=== PATIENT | female | born 1965 | race Caucasian/White ===

== ENCOUNTER → 2017-01-05 | Outpatient (CLI) | payer OTHER ==
[2017-01-05 15:28] VITALS: BP 129/76; PULSE 76; RESP 14; TEMP 98.3; BMI 45.5
--- NOTE | 2017-01-05 15:59 | P.HPBAR ---
Bariatric H&P - History & Physicial H&P Date: 01/05/17 History & Physicial: Visit/CC: band removal/sleeve consult Patient initial contact: Initial weight: 124.012 kg Initial weight in pounds: 273.40 Height: 5 ft 5 in Initial BMI: 45.5 Last weight: Current weight: 124.012 kg Current weight in pounds: 273.40 Current BMI: 45.5 [place] body weight (based on NIH guidelines): 56.699 kg Excess body weight loss: 0.0% The patient is a 51 year-old F who presents for Bariatric Assessment. Patient is requesting conversion to sleeve gastrectomy. She's had a lap band for several years. She's had problems with GERD and dysphagia. She is unable tolerate her band being filled any further due to constant reflux. Past Medical History Past Medical History: Hyperlipidemia, Hypertension, Rheumatoid Arthritis (RA) History of Any Multi-Drug Resistant Organisms: None Reported Past Surgical History: Bariatric Surgery, Tonsillectomy Additional Past Surgical History / Comment(s): lap band placed 2009, Past Anesthesia/Blood Transfusion Reactions: No Reported Reaction Additional Past Anesthesia/Blood Transfusion Reaction / Comm: NO blood transfusions to date Past Psychological History: No Psychological Hx Reported Smoking Status: Never smoker Past Alcohol Use History: Rare Past Drug Use History: None Reported - Past Family History Father Family Medical History: Coronary Artery Disease (CAD), Hypertension, Myocardial Infarction ([place]), Prostate Disorder Additional Family Medical History / Comment(s): at age 81 Mother Family Medical History: Cancer Additional Family Medical History / Comment(s): from cervical cancer dx at age 79 Surgical - Exam Vital Signs Temp Pulse Resp BP 98.3 F 76 14 129/76 01/05/17 15:06 01/05/17 15:06 01/05/17 15:06 01/05/17 15:06 - General well developed, no distress - Eyes PERRL - ENT normal pinna - Neck no masses - Respiratory normal expansion - Cardiovascular Rhythm: regular - Abdomen Abdomen: soft, non tender Bariatric Assessment & Plan Plan: Chronic GERD reflux. Patient LAP-BAND was empty. 6 mL remove her band. She will undergo workup for sleeve gastrectomy. The patient has been diagnosed with rheumatoid arthritis. She has trouble tolerating her pills due to dysphagia created by the LAP-BAND. Bariatric Checklist Checklist: Plan: Checklist: EGD: 1. Hiatal hernia: 2. H. Pylori: HgbA1c: Vitamin D: Smoking: Never smoker Primary care physician referral: link Psychiatry clearance: Cardiology clearance: Sleep study: Diet journal: VTE risk score: VTE risk level: Rehab needs at discharge:
== END | disposition home or self-care (01) ==
LOC: BARWHC3 14:18
PROVIDERS: ATTEND Surgery
DX: Z01.818 Encounter for other preprocedural examination (principal); K21.9 Gastro-esophageal reflux disease without esophagitis; R13.10 Dysphagia, unspecified; Z68.42 Body mass index [BMI] 45.0-49.9, adult; Z98.84 Bariatric surgery status; M06.9 Rheumatoid arthritis, unspecified; Z79.899 Other long term (current) drug therapy
CPT/HCPCS: 99202

== ENCOUNTER 2017-01-16 09:15 | Day surgery (SDC) | payer OTHER ==
[2017-01-13 11:14] VITALS: BMI 40.5
[~2017-01-16 09:15] MED LIST: DEXAMETHASONE SOD PHOSPHATE 10 MG/ML 1 ML VIAL IV ONE; HYDROmorphone 1 MG/ML 1 ML SYRINGE IVP PRN; MIDAZOLAM 2 MG/2 ML VIAL IV PRN; ONDANSETRON 4 MG/2 ML VIAL IVP ONE; SCOPOLAMINE 1.5MG/72HR PATCH TRANSDERM ONE
[2017-01-16 09:58] VITALS: TEMP 97.7
[2017-01-16] MEDS: LACTATED RINGERS 1,000 ML IV SCH ×2 (10:10→10:37)
[2017-01-16] MEDS ORDERED: LIDOCAINE 1% 20 ML VIAL (10MG/ML) FOR IV START INTRADERMA ONE (10:13)
[2017-01-16] MEDS ORDERED: LIDOCAINE 1% INJ 10MG/ML (20 ML MDV) ONE (10:38)
[2017-01-16] MEDS ORDERED: PROPOFOL 10 MG/ML 20 ML VIAL IV ONE (10:38)
--- NOTE | 2017-01-16 10:42 | P.GSHP ---
History of Present Illness H&P Date: 01/16/17 Chief Complaint: GERD Is a 51-year-old female who presents today for EGD. She's had history of GERD. Her LAP-BAND fluid was removed last week. She is undergoing workup for sleeve gastrectomy. - Constitutional Constitutional: Reports as per HPI Past Medical History Past Medical History: Hyperlipidemia, Hypertension, Rheumatoid Arthritis (RA) History of Any Multi-Drug Resistant Organisms: None Reported Past Surgical History: Bariatric Surgery, Tonsillectomy Additional Past Surgical History / Comment(s): lap band placed 2009, cerclage; Past Anesthesia/Blood Transfusion Reactions: No Reported Reaction Additional Past Anesthesia/Blood Transfusion Reaction / Comment(s): NO blood transfusions to date Past Psychological History: No Psychological Hx Reported Smoking Status: Never smoker Past Alcohol Use History: Rare Past Drug Use History: None Reported - Past Family History Father Family Medical History: Coronary Artery Disease (CAD), Hypertension, Myocardial Infarction ([place]), Prostate Disorder Additional Family Medical History / Comment(s): at age 81 Mother Family Medical History: Cancer Additional Family Medical History / Comment(s): from cervical cancer dx at age 79 Medications and Allergies Home Medications Medication Instructions Recorded Confirmed Type Adalimumab [Humira Crohn's] 40 mg SQ DIRECTED 01/05/17 01/16/17 History Atorvastatin [Lipitor] 40 mg PO HS 01/05/17 01/16/17 History Cetirizine HCl 10 mg PO DAILY 01/05/17 01/16/17 History Cholecalciferol [Vitamin D3] 5,000 unit PO DAILY 01/05/17 01/16/17 History Folic Acid 1 mg PO DAILY 01/05/17 01/16/17 History Lisinopril [Zestril] 5 mg PO DAILY 01/05/17 01/16/17 History Methotrexate Sodium [Methotrexate] 15 mg PO Q7D 01/05/17 01/16/17 History Triamcinolone Acetonide [Nasacort] 1 spray EA NOSTRIL DAILY 01/05/17 01/16/17 History Allergies Allergy/AdvReac Type Severity Reaction Status Date / Time No Known Allergies Allergy Verified 01/16/17 10:09 Surgical - Exam Vital Signs Temp Pulse Resp BP Pulse Ox 97.7 F 77 18 149/89 98 01/16/17 09:55 01/16/17 09:55 01/16/17 09:55 01/16/17 09:55 01/16/17 09:55 - General well developed - Eyes PERRL - ENT normal pinna - Neck no masses - Respiratory normal expansion - Cardiovascular Rhythm: regular - Abdomen Abdomen: soft, non tender Assessment and Plan Plan: GERD. We'll perform EGD.
--- NOTE | 2017-01-16 10:52 | P.OP ---
Date of Procedure: 01/16/17 Preoperative Diagnosis: GERD Postoperative Diagnosis: Antral gastritis LAP-BAND without evidence of erosion or inflammation Moderate esophagitis Procedure(s) Performed: EGD Anesthesia: MAC Surgeon: Melo Hale Pathology: other (Antrum, esophagus) Condition: stable Disposition: PACU Description of Procedure: The patient's placed on the endoscopy table in the lateral position. She received IV sedation. The gastroscope some placed oropharynx passed in the esophagus and into the stomach. Scope was then placed through the pylorus. First and second portion of the duodenum appeared normal. Scope was then brought back the antrum and this appeared mildly inflamed. A biopsies performed. The scope was then retroflexed and the remainder of the stomach appeared normal. . The LAP-BAND appeared to be without evidence of inflammation or erosion. The scope was then brought back to the level GE junction. The distal esophagus appeared to be moderately inflamed. A biopsies performed. The proximal esophagus Appeared Normal. Scope was withdrawn for patient.
[2017-01-16 10:58] VITALS: RESP 16
[2017-01-16 11:15] VITALS: BP 133/92; PULSE 64
== END 2017-01-16 11:30 | disposition home or self-care (01) ==
LOC: ORWHC2ENDO 09:15
PROVIDERS: ATTEND Surgery
DX: K20.9 Esophagitis, unspecified (principal); K29.50 Unspecified chronic gastritis without bleeding; E78.5 Hyperlipidemia, unspecified; I10 Essential (primary) hypertension; M06.9 Rheumatoid arthritis, unspecified; K50.90 Crohn's disease, unspecified, without complications; Z79.899 Other long term (current) drug therapy; Z98.84 Bariatric surgery status
CPT/HCPCS: 88305; 88312; 88342; 43239; J2001; J2704

== ENCOUNTER → 2017-01-19 | Outpatient (CLI) | payer OTHER ==
[2017-01-19 12:54] VITALS: BMI 42.5
[2017-01-19 16:18] VITALS: BP 132/75; PULSE 70; RESP 16; TEMP 97.6
--- NOTE | 2017-01-19 16:35 | P.HPBAR ---
Bariatric H&P - History & Physicial H&P Date: 01/19/17 History & Physicial: Visit/CC: Pre- Surg Patient initial contact: Initial weight: 124.012 kg Initial weight in pounds: 273.40 Height: 5 ft 5 in Initial BMI: 45.5 Last weight: Current weight: 115.802 kg Current weight in pounds: 255.30 Current BMI: 42.5 [place] body weight (based on NIH guidelines): 56.699 kg Excess body weight loss: 12.1% The patient is a 51 year-old F who presents for Bariatric Assessment. The patient has had long-standing problems reflux to her LAP-BAND. The patient wished to have her LAP-BAND removed and converted to sleeve gastrectomy. Past Medical History Past Medical History: Hyperlipidemia, Hypertension, Rheumatoid Arthritis (RA) History of Any Multi-Drug Resistant Organisms: None Reported Past Surgical History: Bariatric Surgery, Tonsillectomy Additional Past Surgical History / Comment(s): lap band placed 2009, cerclage; Past Anesthesia/Blood Transfusion Reactions: No Reported Reaction Additional Past Anesthesia/Blood Transfusion Reaction / Comm: NO blood transfusions to date Past Psychological History: No Psychological Hx Reported Smoking Status: Never smoker Past Alcohol Use History: Rare Past Drug Use History: None Reported - Past Family History Father Family Medical History: Coronary Artery Disease (CAD), Hypertension, Myocardial Infarction ([place]), Prostate Disorder Additional Family Medical History / Comment(s): at age 81 Mother Family Medical History: Cancer Additional Family Medical History / Comment(s): from cervical cancer dx at age 79 Surgical - Exam Vital Signs Temp Pulse Resp BP 97.6 F 70 16 132/75 01/19/17 16:16 01/19/17 16:16 01/19/17 16:16 01/19/17 16:16 - General well developed, no distress - Eyes PERRL - Neck no masses - Respiratory normal expansion - Cardiovascular Rhythm: regular - Abdomen Abdomen: soft, non tender Bariatric Assessment & Plan Plan: Morbid obesity with severe comorbidities. GERD. The patient has a good understanding of sleeve yesterday. I went over the risks and benefits of procedure including conversion to the open procedure and injury to the stomach liver spleen and issues the gastric staple line such as bleeding perforation or obstruction. The patient returned scheduled for surgery next month. Bariatric Checklist Checklist: Plan: Checklist: EGD: 1. Hiatal hernia: 2. H. Pylori: HgbA1c: Vitamin D: Smoking: Never smoker Primary care physician referral: link Psychiatry clearance: Cardiology clearance: Sleep study: Diet journal: VTE risk score: VTE risk level: Rehab needs at discharge:
== END | disposition home or self-care (01) ==
LOC: BARWHC3 08:50
PROVIDERS: ATTEND Surgery
DX: Z01.818 Encounter for other preprocedural examination (principal); Z71.3 Dietary counseling and surveillance; E66.01 Morbid (severe) obesity due to excess calories; Z68.41 Body mass index [BMI] 40.0-44.9, adult; K21.9 Gastro-esophageal reflux disease without esophagitis
CPT/HCPCS: 97804; 99211

== ENCOUNTER → 2018-04-12 | Outpatient (CLI) | payer OTHER ==
[2018-04-12 14:35] VITALS: BP 180/97; PULSE 73; TEMP 97.8; BMI 47.7
--- NOTE | 2018-04-12 14:58 | P.HPBAR ---
Bariatric H&P - History & Physicial H&P Date: 04/12/18 History & Physicial: Visit/CC: presurgical visit Patient initial contact: Initial weight: 124.012 kg Initial weight in pounds: 273.40 Height: 5 ft 5 in Initial BMI: 45.5 Last weight: Current weight: 130.226 kg Current weight in pounds: 287.10 Current BMI: 47.7 [place] body weight (based on NIH guidelines): 56.699 kg Excess body weight loss: The patient is a 53 year-old F who presents for Bariatric Assessment. Patient presents today for preoperative sleeve conversion consultation. She states she wishes to have her sleeve performed in June. She has almost completed all her preoperative sedation paperwork. Patient still morbidly obese with BMI 48. Past Medical History Past Medical History: Hyperlipidemia, Hypertension, Rheumatoid Arthritis (RA) History of Any Multi-Drug Resistant Organisms: None Reported Past Surgical History: Bariatric Surgery, Tonsillectomy Additional Past Surgical History / Comment(s): lap band placed 2009, cerclage; Past Anesthesia/Blood Transfusion Reactions: No Reported Reaction Additional Past Anesthesia/Blood Transfusion Reaction / Comm: NO blood transfusions to date Past Psychological History: No Psychological Hx Reported Smoking Status: Never smoker Past Alcohol Use History: Rare Past Drug Use History: None Reported - Past Family History Father Family Medical History: Coronary Artery Disease (CAD), Hypertension, Myocardial Infarction ([place]), Prostate Disorder Additional Family Medical History / Comment(s): at age 81 Mother Family Medical History: Cancer Additional Family Medical History / Comment(s): from cervical cancer dx at age 79 Surgical - Exam Vital Signs Temp Pulse BP 97.8 F 73 180/97 04/12/18 14:28 04/12/18 14:28 04/12/18 14:28 - General well developed, no distress - Abdomen Abdomen: non tender Bariatric Assessment & Plan Plan: Morbid obesity BMI 48. Patient will be scheduled for sleeve gastrectomy conversion and June 2018. Over the risk and benefits of procedure. We discussed the possible risk of gastric perforation. Patient seems to have a good understanding of sleeve gastrectomy. Bariatric Checklist Checklist: Plan: Checklist: EGD: 1. Hiatal hernia: 2. H. Pylori: HgbA1c: Vitamin D: Smoking: Never smoker Primary care physician referral: link Psychiatry clearance: Cardiology clearance: Sleep study: Diet journal: VTE risk score: VTE risk level: Rehab needs at discharge:
== END | disposition home or self-care (01) ==
LOC: BARWHC3 12:51
PROVIDERS: ATTEND Surgery
DX: E66.01 Morbid (severe) obesity due to excess calories (principal); E78.5 Hyperlipidemia, unspecified; I10 Essential (primary) hypertension; M06.9 Rheumatoid arthritis, unspecified; Z98.84 Bariatric surgery status; Z68.42 Body mass index [BMI] 45.0-49.9, adult; Z98.890 Other specified postprocedural states
CPT/HCPCS: 99211

== ENCOUNTER → 2018-05-17 | Outpatient (CLI) | payer OTHER ==
[2018-05-17 15:09] VITALS: BP 125/82; PULSE 75; TEMP 97.9; BMI 47.7
--- NOTE | 2018-05-17 15:37 | P.HPBAR ---
Bariatric H&P - History & Physicial H&P Date: 05/17/18 History & Physicial: Visit/CC: lapband fill Patient initial contact: Initial weight: 124.012 kg Initial weight in pounds: 273.40 Height: 5 ft 5 in Initial BMI: 45.5 Last weight: Current weight: 130.272 kg Current weight in pounds: 287.20 Current BMI: 47.7 [place] body weight (based on NIH guidelines): 56.699 kg Excess body weight loss: The patient is a 53 year-old F who presents for Bariatric Assessment. Patient is requesting a fill. She's not had a lap band adjustment in several months. Past Medical History Past Medical History: Hyperlipidemia, Hypertension, Rheumatoid Arthritis (RA) History of Any Multi-Drug Resistant Organisms: None Reported Past Surgical History: Bariatric Surgery, Tonsillectomy Additional Past Surgical History / Comment(s): lap band placed 2009, cerclage; Past Anesthesia/Blood Transfusion Reactions: No Reported Reaction Additional Past Anesthesia/Blood Transfusion Reaction / Comm: NO blood transfusions to date Smoking Status: Never smoker - Past Family History Father Family Medical History: Coronary Artery Disease (CAD), Hypertension, Myocardial Infarction ([place]), Prostate Disorder Additional Family Medical History / Comment(s): at age 81 Mother Family Medical History: Cancer Additional Family Medical History / Comment(s): from cervical cancer dx at age 79 Surgical - Exam Vital Signs Temp Pulse BP 97.9 F 75 125/82 05/17/18 15:02 05/17/18 15:02 05/17/18 15:02 - General well developed, no distress - Eyes PERRL - ENT normal pinna - Neck no masses - Respiratory normal expansion - Cardiovascular Rhythm: regular - Abdomen Abdomen: soft, non tender Bariatric Assessment & Plan Plan: Patient's lap band was adjusted. She had 3 mL added to her band. She'll follow -up in one month. Bariatric Checklist Checklist: Plan: Checklist: EGD: 1. Hiatal hernia: 2. H. Pylori: HgbA1c: Vitamin D: Smoking: Never smoker Primary care physician referral: riyaler Psychiatry clearance: Cardiology clearance: Sleep study: Diet journal: VTE risk score: VTE risk level: Rehab needs at discharge:
== END | disposition home or self-care (01) ==
LOC: BARWHC3 13:35
PROVIDERS: ATTEND Surgery
DX: Z48.815 Encounter for surgical aftercare following surgery on the digestive system (principal); Z98.84 Bariatric surgery status
CPT/HCPCS: 99212

== ENCOUNTER → 2018-06-14 | Outpatient (CLI) | payer OTHER ==
[2018-06-14 14:01] VITALS: BMI 46.0
[2018-06-14 14:32] VITALS: BP 130/92; PULSE 95; RESP 14; TEMP 97.5
--- NOTE | 2018-06-15 11:13 | P.HPBAR ---
Bariatric H&P - History & Physicial H&P Date: 06/14/18 History & Physicial: Visit/CC: lap band fill Patient initial contact: Initial weight: 124.012 kg Initial weight in pounds: 273.40 Height: 5 ft 5 in Initial BMI: 45.5 Last weight: Current weight: 125.418 kg Current weight in pounds: 276.50 Current BMI: 46.0 [place] body weight (based on NIH guidelines): 56.699 kg Excess body weight loss: The patient is a 53 year-old F who presents for Bariatric Assessment. Patient presents today for lab band follow up. She's lost 11 pounds since her last visit. She is requesting a fill. She currently feels hungry. Past Medical History Past Medical History: Hyperlipidemia, Hypertension, Rheumatoid Arthritis (RA) History of Any Multi-Drug Resistant Organisms: None Reported Past Surgical History: Bariatric Surgery, Tonsillectomy Additional Past Surgical History / Comment(s): lap band placed 2009, cerclage; Past Anesthesia/Blood Transfusion Reactions: No Reported Reaction Additional Past Anesthesia/Blood Transfusion Reaction / Comm: NO blood transfusions to date Past Psychological History: No Psychological Hx Reported Smoking Status: Never smoker Past Alcohol Use History: Rare Past Drug Use History: None Reported - Past Family History Father Family Medical History: Coronary Artery Disease (CAD), Hypertension, Myocardial Infarction ([place]), Prostate Disorder Additional Family Medical History / Comment(s): at age 81 Mother Family Medical History: Cancer Additional Family Medical History / Comment(s): from cervical cancer dx at age 79 Surgical - Exam Vital Signs Temp Pulse Resp BP 97.5 F L 95 14 130/92 06/14/18 13:12 06/14/18 13:12 06/14/18 13:12 06/14/18 13:12 - General well developed, no distress - Eyes PERRL - ENT normal pinna - Abdomen Abdomen: soft, non tender Bariatric Assessment & Plan Plan: Patient LAP-BAND was adjusted. She had 2 mL added to her band giving her total 5 mL. Patient was able drink water without difficulty. She'll follow-up in one month. Bariatric Checklist Checklist: Plan: Checklist: EGD: 1. Hiatal hernia: 2. H. Pylori: HgbA1c: Vitamin D: Smoking: Never smoker Primary care physician referral: link Psychiatry clearance: Cardiology clearance: Sleep study: Diet journal: VTE risk score: VTE risk level: Rehab needs at discharge:
== END | disposition home or self-care (01) ==
LOC: BARWHC3 13:02
PROVIDERS: ATTEND Surgery
DX: Z48.815 Encounter for surgical aftercare following surgery on the digestive system (principal); E66.01 Morbid (severe) obesity due to excess calories; Z68.42 Body mass index [BMI] 45.0-49.9, adult; Z98.84 Bariatric surgery status
CPT/HCPCS: 97803; 99212

== ENCOUNTER → 2018-10-08 | Outpatient (CLI) | payer OTHER ==
[2018-10-08 12:14] LABS: Appearance,Urine Cloudy (Clear); Bilirubin,Urine Negative (Negative); Blood,Urine Small (Negative); Color,Urine Yellow; Glucose,Urine (UA) Negative (Negative); HCT 46.7 % (34.0-46.0); HGB 15.2 gm/dL (11.4-16.0); Hyaline Casts,Urine 2 /lpf (0-2); Ketones,Urine Negative (Negative); Leukocyte Esterase,Urine Moderate (Negative); MCH 29.7 pg (25.0-35.0); MCHC 32.5 g/dL (31.0-37.0); MCV 91.3 fL (80.0-100.0); Mean Platelet Volume 7.2; Mucus,Urine Few /hpf; Nitrite,Urine Negative (Negative); PH, Urine 5.5 (5.0-8.0); Platelet Count 325 k/uL (150-450); Protein,Urine Trace (Negative); RBC 5.11 m/uL (3.80-5.40); RBC,Urine 5 /hpf (0-5); RDW 12.9 % (11.5-15.5); Specific Gravity,Urine 1.026 (1.001-1.035); Squamous Epithelial Cell,Urine 9 /hpf (0-4); Urobilinogen,Urine <2.0 mg/dL (<2.0); WBC 5.2 k/uL (3.8-10.6); WBC,Urine 7 /hpf (0-5)
[2018-10-08 12:15] LABS: INR 1.1 (<1.2); Prothrombin Time 11.1 sec (9.0-12.0)
[2018-10-08 12:36] LABS: Potassium 4.6 mmol/L (3.5-5.1)
== END ==
LOC: LABPAT 11:14
PROVIDERS: ATTEND Orthopaedic Surgery
DX: Z01.818 Encounter for other preprocedural examination (principal); Z01.812 Encounter for preprocedural laboratory examination
CPT/HCPCS: 80051; 81001; 82565; 84520; 85027; 85610; 85730; 87070; 93005

== ENCOUNTER 2018-11-02 08:37 | Inpatient (IN) | payer OTHER ==
[2018-10-27 15:00] VITALS: BMI 44.6
[~2018-11-02 08:37] MED LIST changes: -DEXAMETHASONE SOD PHOSPHATE 10 MG/ML 1 ML VIAL IV ONE; -HYDROmorphone 1 MG/ML 1 ML SYRINGE IVP PRN; +LIDOCAINE 1% 20 ML VIAL (10MG/ML) FOR IV START INTRADERMA PRN; +MIDAZOLAM (PF) 2 MG/2 ML VIAL IV PRN; -MIDAZOLAM 2 MG/2 ML VIAL IV PRN; -ONDANSETRON 4 MG/2 ML VIAL IVP ONE; +ROPIVACAINE 246.25 MG, EPINEPHrine 0.5 MG, KETOROLAC 30 MG, cloNIDine HCL/PF 80 MCG, WA... MISCELLANE ONE; -SCOPOLAMINE 1.5MG/72HR PATCH TRANSDERM ONE; +TRANEXAMIC ACID 1,000 MG in SODIUM CHLORIDE 0.9% 50 ML IVPB ONE; +fentaNYL (PF) 50 MCG/ML 2 ML AMP IV PRN
[2018-11-02] MEDS: LACTATED RINGERS 1,000 ML IV SCH (09:10)
[2018-11-02 09:25] LABS: Glucose,Whole Blood 85 mg/dL (75-99)
[2018-11-02] MEDS ORDERED: MIDAZOLAM 2 MG/2 ML VIAL IVP ONE (09:45)
[2018-11-02] MEDS ORDERED: fentaNYL (PF) 50 MCG/ML 2 ML AMP IVP ONE (09:45)
[2018-11-02] MEDS: DEXAMETHASONE SOD PHOSPHATE 10 MG/ML 1 ML VIAL IV ONE ×2 (10:21→17:19)
[2018-11-02] MEDS: ACETAMINOPHEN TAB 500 MG TAB PO ONE ×2 (10:21→17:20)
[2018-11-02] MEDS: ONDANSETRON 4 MG/2 ML VIAL IVP ONE ×2 (10:22→17:19)
[2018-11-02] MEDS: MELOXICAM 7.5 MG TAB PO ONE ×2 (10:22→17:20)
[2018-11-02] MEDS ORDERED: ROPIVACAINE 1,100 MG, SODIUM CHLORIDE 0.9% 500 ML 330 ML MISCELLANE PRN ×2 (10:34)
--- NOTE | 2018-11-02 10:34 | P.ONQ ---
Anesthesiology Proc Note - PNB - Peripheral Nerve Block Performed Left Adductor Canal Infusion Time Out Performed: Yes Procedure Start Time: 09:48 Procedure Stop Time: 10:05 Indication: Requested by physician Specifically requested for management of pain by : Tuan Enciso Sedation Type: Sedate with meaningful contact maintained Preparation: Sterile Dressing Position: Supine Catheter: Indwelling Needle Types: Other (see comment) (pujunk) Needle Size: 100mm (4") Needle Gauge: 20 Technique: Ultrasound Injectate: 0.5% Ropivacaine (see comment for volume) (20 ml) Blood Aspirated: No Pain Paresthesia on Injection Noted: No Resistance on Injection: Normal Events: Uneventful and Well Tolerated
[2018-11-02] MEDS ORDERED: NALOXONE 0.4 MG/ML 1 ML VIAL IV PRN (11:15)
[2018-11-02] MEDS ORDERED: MAGNESIUM HYDROXIDE 2,400 MG/10 ML CUP PO PRN (11:15)
[2018-11-02] MEDS ORDERED: NA PHOS,M-B/NA PHOS,DI-BA 133 ML ENEMA RECTAL PRN (11:15)
[2018-11-02] MEDS ORDERED: ONDANSETRON 4 MG/2 ML VIAL IVP PRN (11:15)
[2018-11-02] MEDS ORDERED: HYDROmorphone 0.5 MG/0.5 ML SYRINGE IVP PRN (11:15)
[2018-11-02] MEDS ORDERED: DIAZEPAM 5 MG TAB PO PRN (11:15)
[2018-11-02] MEDS ORDERED: HYDROcodone/APAP 5-325MG 1 EACH TAB PO PRN (11:15)
[2018-11-02] MEDS ORDERED: HYDROmorphone 1 MG/ML 1 ML SYRINGE IVP PRN ×3 (11:15→11:35)
[2018-11-02] MEDS ORDERED: BISACODYL 10 MG SUPP RECTAL PRN (11:15)
[2018-11-02] MEDS ORDERED: TRANEXAMIC ACID 1,000 MG/10 ML VIAL ONE (11:34)
[2018-11-02] MEDS ORDERED: SODIUM CHLORIDE 0.9% 100 ML BAG ONE (11:34)
[2018-11-02] MEDS ORDERED: fentaNYL (PF) 50 MCG/ML 2 ML AMP ONE (11:34)
[2018-11-02] MEDS ORDERED: MIDAZOLAM 2 MG/2 ML VIAL ONE (11:34)
[2018-11-02] MEDS ORDERED: PROPOFOL 10 MG/ML 20 ML VIAL IV ONE (11:34)
[2018-11-02] MEDS ORDERED: ceFAZolin 3,000 MG in SODIUM CHLORIDE 0.9% IRRIGATIO 3,000 ML IRRIGATION ONE (12:09)
--- NOTE | 2018-11-02 13:12 | P.OP ---
Date of Procedure: 11/02/18 Preoperative Diagnosis: Severe osteoarthritis left knee Postoperative Diagnosis: Severe osteoarthritis left knee Procedure(s) Performed: Left total knee arthroplasty Implants: [employer] Journey II CR Oxinium cruciate retaining femoral component size 6, left [employer] Journey left nonporous tibial baseplate size 4 [employer] Journey II, XLPE CR articular insert, size 9 mm, Size 3-4 left [employer] BCS resurfacing oval patellar component, 29 mm All components were cemented using [place] R bone cement.. The articulation is Oxinium on polyethylene. Anesthesia: spinal Surgeon: Tuan Enciso Propagation Manager #1: Amanda Dewitt Estimated Blood Loss (ml): 25 Pathology: other (Bone and cartilage) Condition: stable Disposition: PACU Indications for Procedure: After failure of conservative treatment we discussed the surgical and nonsurgical treatment options at length. Patient wishes to proceed with a total knee arthroplasty. Complications specific to this procedure were discussed at length, including but not limited to infection, bleeding, stiffness , and nerve injury. Patient is aware of all these complications and informed consent was obtained Operative Findings: The operative findings are consistent with severe osteoarthritis of the left knee Description of Procedure: Patient was seen in the preoperative area consent was reviewed and operative site was marked with a skin marker. An adductor canal pain catheter was placed by anesthesia in the preoperative area. Patient was then brought to the operating room and given preoperative antibiotics intravenously. A spinal anesthetic was administered by the anesthesia department. A tourniquet was placed on the upper thigh and the lower extremity was prepped and draped in usual sterile fashion. A gram of transexamic acid was given. A universal timeout was then performed which confirmed the patient's name, surgical site, ALLERGIES, and consent. The lower extremity was then exsanguinated and tourniquet was inflated to 250 mmHg. A standard and anterior midline approach to the knee was performed. The skin and subcutaneous tissue was dissected down to the patellar tendon. A medial parapatellar arthrotomy was then performed. The knee was then extended, the patellar was everted, and the knee was again flexed. Anterior horns of both menisci were excised, and a release was performed to the posterior medial aspect of the knee. On gross visual inspection, there was complete loss of articular cartilage in the medial and patellofemoral joint spaces. There was also significant cartilage damage in the lateral compartment. There were multiple periarticular osteophytes which were then removed with a Ronguer. The femoral canal was then opened with the appropriate drill, and the intramedullary femoral cutting guide was then placed and set for 5 of valgus. The distal femoral cutting block was then pinned in place, and the distal femur was then cut. The cutting block was then removed and the cut was checked for flatness. Next, the sizing guide was then placed and set for 3 external rotation based off of the epicondylar axis and [place] line. After the femur was sized, the appropriate 4-in-1 cutting block was then pinned in place. The anterior condyles were cut without notching. The posterior and chamfer cuts were performed while protecting the collateral ligaments. The cutting block was then removed, and the femoral canal was plugged with autologous bone. Attention was then directed to the tibia. The remaining ACL was removed with a Ronguer, and the tibia was then gently subluxed forward with a large bent knee retractor. Any remaining menisci was excised. The posterior lateral corner was cauterized in order to cauterize the lateral geniculate artery. The extra medullary tibial cutting guide was then placed, set for the appropriate rotation , slope, and depth of resection. The proximal tibia cutting guide was then pinned in place. Proximal tibia was then cut and sized. Next trials were then placed with the appropriate-sized insert. The knee was able to fully extend and flex to 130 and was stable throughout all range of motion. The knee was then extended, patella everted. Patella was then measured, and then using an osteotomy guide, the patella was cut at the appropriate level. The patella was then measured and drilled and the patella trial was then placed. The knee was then taken through range of motion with the patella trial and the patella tracked normally. The knee was then extended patella trial was then removed and the patella was everted. Knee was then flexed and lug holes were drilled through the femoral trial and the femoral trial was then removed. The tibial was then exposed, and the tibial broach guide was then pinned in place after it was set for the appropriate rotation to allow for the most coverage without overhang. The tibia was then reamed and broached. The cut surfaces of bone were then irrigated with pulsatile lavage. The posterior structures were injected with the ropivacaine solution. The knee was also irrigated with Irrisept solution. The components were then opened, the cement was mixed, and the components were then cemented in place. The cement was allowed to harden with the knee in full extension. While the cement was hardening, the remaining soft tissues were then injected with a ropivacaine solution, which consisted of 246.25 mg of ropivacaine, 0.5 mg of epinephrine, 30 mg of Toradol, 80 g of clonidine, and 48.45 mL of sterile water, for a total of 100 mL of fluid injected. After the cemented hardened. The tourniquet was released, and hemostasis was obtained. A second gram of transexamic acid was given. The knee was again irrigated. The knee was again taken through range of motion and found to be stable throughout all range of motion of 0-130 , and the patella tracked normally. The fascia was then closed with #2 strata fix suture. The subcutaneous tissue was closed with 3-0 Vicryl and 3-0 strata fix. Dermabond glue was used for the skin and placed with the knee in flexion. The patient was placed in a sterile silver dressing. Patient was then transferred to recovery room in stable condition. The assistant paralegal KRYSTIAN Yarbrough was required due the complexity surgery and the need for a skilled hospital nursing assistant. She assisted in positioning, draping, retraction, and closure of the wound.
[2018-11-02] MEDS ORDERED: MEPERIDINE 50 MG/ML SYRINGE IVP ONE (13:49)
--- NOTE | 2018-11-02 14:09 | XR ---
Limited left knee HISTORY: Status post left knee arthroplasty 2 views the left knee Patient is status post left knee arthroplasty. There is anatomic alignment. Lucency in the soft tissu es compatible with postop state. IMPRESSION: Orthopedic follow-up.
[2018-11-02] MEDS: SODIUM CHLORIDE 0.9% 1,000 ML IV SCH (17:18)
[2018-11-02] MEDS: HYDROcodone/APAP 5-325MG 1 EACH TAB PO PRN ×2 (17:50→23:42)
[2018-11-02] MEDS: ASPIRIN 325 MG TAB PO SCH (20:24)
[2018-11-02] MEDS: SENNOSIDES-DOCUSATE SODIUM 1 EACH TAB PO SCH (20:24)
[2018-11-02] MEDS ORDERED: hydrOXYzine HCL 25 MG TAB PO PRN (20:24)
--- NOTE | 2018-11-02 23:25 | CONS ---
CONSULTATION REASON FOR CONSULTATION: Advice regarding hypertension and multiple medical issues requested by Dr. Enciso. HISTORY OF PRESENT ILLNESS: This 52-year-old woman with a past medical history of GERD, hypertension, hyperlipidemia, rheumatoid arthritis, history of lap band, being followed by Dr. Echevarria in the outpatient setting underwent total left knee arthroplasty for severe DJD by Dr. Enciso. The patient tolerated the procedure well. There is no history of fever, rigors. No history of headache, loss of consciousness, seizures at this time. The patient is being closely monitored at this time. PAST MEDICAL HISTORY: Hypertension, hyperlipidemia, GERD, rheumatoid arthritis, history of DJD. MEDICATIONS ARE: 1. Atarax 50 mg t.i.d. p.r.n. 2. Nasacort 1 spray b.i.d. daily. 3. Prilosec 20 mg. 4. Methotrexate 2.5 mg q 14 days. 5. Zestril 5 mg p.o. daily. 6. Motrin 800 mg q.8h p.r.n. 7. Folic acid 1 mg p.o. daily. 8. Vitamin D3 5000 daily. 9. Cetirizine 10 mg daily. 10.Lipitor 40 mg daily. 11.Humira 40 mg subcu q14 days. 12.Tylenol Extra strength 500-1000 mg q.6h p.r.n. ALLERGIES: None. FAMILY HISTORY: History of CAD, hypertension, microinfarction, prostate disorder. SOCIAL HISTORY: No history of smoking. Occasional alcohol intake. REVIEW OF SYSTEMS: ENT: No diminished hearing. No diminished vision. CARDIOVASCULAR: No angina or palpitations. Respiration: No cough or hemoptysis. GI no nausea or vomiting. no dysuria. Nervous System: No numbness or weakness. ALLERGY/IMMUNOLOGY: No asthma or hayfever. MUSCULOSKELETAL: As mentioned earlier. HEMATOLOGY/ONCOLOGY: No history of anemia. ENDOCRINE: As mentioned earlier. CONSTITUTIONAL: As mentioned earlier. Dermatology: Negative. Rheumatology: Negative. Psychiatry: As mentioned earlier. PHYSICAL EXAMINATION: Alert and oriented x3. The pulse is 68, blood pressure 130/70, respiration 14, temperature 97.7, pulse ox 98% on 2 L. HEENT: Conjunctivae normal. Oral mucosa moist. Neck is no JVD. CARDIOVASCULAR: S1, S2. Respiration: Breath sounds diminished in the bases. No rhonchi. No crackles. ABDOMEN: Soft, nontender. No mass palpable. Legs status post left total knee arthroplasty. NERVOUS SYSTEM: Higher functions as mentioned earlier. Moves all 4 limbs. No focal motor deficits. SKIN: No ulcer, rash or bleeding. LABORATORY DATA: Labs are glucose is 85. Otherwise, the most recent labs are CBC within normal limits and chemistry is normal. UA shows noted. ASSESSMENT: 1. Status post left total knee arthroplasty. 2. Hypertension. 3. Hyperlipidemia. 4. History of gastroesophageal reflux disease. 5. Rheumatoid arthritis. 6. History of lap band. 7. History of adenoidectomy. RECOMMENDATIONS AND DISCUSSION: In this 53-year-old woman who presented after surgery, at this time, I recommend to continue current medications, symptomatic treatment. Resume the home medications. DVT prophylaxis. Incentive spirometry. I would also recommend repeat UA. We will follow the patient closely. The patient will be asked to follow up with Dr. Echevarria after discharge. Thank you Dr. Enciso, for letting us participate in the care of this patient. MMODL / GLENNAN: [id number] /
[2018-11-03 00:19] LABS: Appearance,Urine Clear (Clear); Bacteria,Urine Rare /hpf; Bilirubin,Urine Negative (Negative); Blood,Urine Negative (Negative); Color,Urine Yellow; Glucose,Urine (UA) Negative (Negative); Hyaline Casts,Urine 4 /lpf (0-2); Ketones,Urine Trace (Negative); Leukocyte Esterase,Urine Moderate (Negative); Mucus,Urine Occasional /hpf; Nitrite,Urine Negative (Negative); Protein,Urine 1+ (Negative); RBC,Urine 1 /hpf (0-5); Specific Gravity,Urine 1.039 (1.001-1.035); Squamous Epithelial Cell,Urine 7 /hpf (0-4); WBC,Urine 13 /hpf (0-5)
[2018-11-03] MEDS: SODIUM CHLORIDE 0.9% 1,000 ML IV SCH (02:41)
[2018-11-03] MEDS: HYDROcodone/APAP 5-325MG 1 EACH TAB PO PRN ×4 (05:32→23:04)
[2018-11-03] MEDS: LACTATED RINGERS 1,000 ML IV SCH (05:40)
--- NOTE | 2018-11-03 07:42 | P.PN ---
Progress Note - Text Progress Note Date: 11/03/18 Postoperative day # 1 status post left total knee arthroplasty, under spinal anesthesia, and adductor canal catheter placed for postoperative analgesia, currently at ropivacaine 0.2% 8 mL per hour and continuous infusion, visual analogue scale is 2/10, patient using oral pain medication for breakthrough pain. Assessment and plan= Acute postoperative pain, adductor canal catheter for pain control, pain is well controlled we'll continue the same management.
--- NOTE | 2018-11-03 08:53 | P.DS ---
Providers Date of admission: 11/02/18 08:37 Expected date of discharge: 11/03/18 Attending physician: Tuan Enciso Consults: 11/02/18 11:15 Consult Physician Routine Consulting Provider: Franco Echevarria Consult Reason/Comments: medical management Do you want consulting provider notified?: Yes 11/02/18 16:12 Consult Physician Routine Consulting Provider: Ricki Veliz Consult Reason/Comments: medical management Do you want consulting provider notified?: Yes Primary care physician: Franco Echevarria - Discharge Diagnosis(es) (1) Primary osteoarthritis of left knee Current Visit: Yes Status: Acute (2) Status post total left knee replacement Current Visit: Yes Status: Acute Hospital Course: This is a 53-year-old female with known history of degenerative arthritis of the left knee. The patient presents for evaluation. After discussion and consideration patient elects to proceed with total knee arthroplasty. The patient is seen preoperatively by Dr. Enciso and medically cleared for surgery by their primary care physician. Patient is admitted to [facility] on 11/02/2018 for total knee arthroplasty. The procedures performed without complication or sequelae. The patient is doing well postoperatively. Labs and vital signs are stable on day of discharge. On day of discharge patient's knee incision is healing well. There is minimal erythema. There is no drainage noted at this time. There is minimal soft tissue swelling to the knee. Patient has full foot and ankle motion without difficulty or pain. Neurovascular status to the left lower extremity is intact. Patient is discharged home in good condition. Please see med rec for accurate list of home medications. Plan - Discharge Summary Discharge Rx Participant: Yes New Discharge Prescriptions: New Aspirin 325 mg PO BID #60 tab HYDROcodone/APAP 5-325MG [[place] 5-325] 1 - 2 tab PO Q4-6H PRN #84 tab PRN Reason: Pain Sennosides [Senokot] 1 tab PO BID #60 tablet No Action Cholecalciferol [Vitamin D3] 5,000 unit PO DAILY Atorvastatin [Lipitor] 40 mg PO DAILY Adalimumab [Humira Crohn's] 40 mg SQ Q14D Triamcinolone Acetonide [Nasacort] 1 spray EA NOSTRIL DAILY Lisinopril [Zestril] 5 mg PO DAILY Cetirizine HCl 10 mg PO DAILY Folic Acid 1 mg PO DAILY Ibuprofen [Motrin] 800 mg PO Q8H PRN PRN Reason: Pain hydrOXYzine HCL [Atarax] 50 mg PO TID PRN PRN Reason: HIVES Methotrexate [Xatmep Oral Soln] 2.5 mg PO Q14D Acetaminophen [Tylenol Extra Strength] 500 - 1,000 mg PO Q6H PRN PRN Reason: Pain Omeprazole [PriLOSEC] 20 mg PO AC-BRKFST Discharge Medication List Adalimumab [Humira Crohn's] 40 mg SQ Q14D 01/05/17 [History] Atorvastatin [Lipitor] 40 mg PO DAILY 01/05/17 [History] Cetirizine HCl 10 mg PO DAILY 01/05/17 [History] Cholecalciferol [Vitamin D3] 5,000 unit PO DAILY 01/05/17 [History] Folic Acid 1 mg PO DAILY 01/05/17 [History] Lisinopril [Zestril] 5 mg PO DAILY 01/05/17 [History] Triamcinolone Acetonide [Nasacort] 1 spray EA NOSTRIL DAILY 01/05/17 [History] Ibuprofen [Motrin] 800 mg PO Q8H PRN 06/14/18 [History] Acetaminophen [Tylenol Extra Strength] 500 - 1,000 mg PO Q6H PRN 10/27/18 [ History] Methotrexate [Xatmep Oral Soln] 2.5 mg PO Q14D 10/27/18 [History] Omeprazole [PriLOSEC] 20 mg PO AC-BRKFST 10/27/18 [History] hydrOXYzine HCL [Atarax] 50 mg PO TID PRN 10/27/18 [History] Aspirin 325 mg PO BID #60 tab 11/03/18 [Rx] HYDROcodone/APAP 5-325MG [[place] 5-325] 1 - 2 tab PO Q4-6H PRN #84 tab 11/03/18 [ Rx] Sennosides [Senokot] 1 tab PO BID #60 tablet 11/03/18 [Rx] Follow up Appointment(s)/Referral(s): Tuan Enciso DO [Doctor of Osteopathic Medicine] - 2 Weeks Ambulatory/Diagnostic Orders: Continuous Passive Motion (CPM) Machine [DME.AMB1] Time Frame: 3 Weeks, Location : None Selected Activity/Diet/Wound Care/Special Instructions: Weightbearing as tolerated with a walker. CPM 5-6h daily. Leave dressing intact. May be removed by home care nurse in 10 days. May shower with dressing on. Please follow up with [facility] and call with any questions or concerns, . Discharge Disposition: HOME WITH HOME HEALTH SERVICES
[2018-11-03] MEDS: LORATADINE 10 MG TAB PO SCH (09:35)
[2018-11-03] MEDS: PANTOPRAZOLE 40 MG TABLET PO SCH (09:35)
[2018-11-03] MEDS: CHOLECALCIFEROL 1,000 UNIT TAB PO SCH (09:35)
[2018-11-03] MEDS: ATORVASTATIN 40 MG TAB PO SCH (09:36)
[2018-11-03] MEDS: ASPIRIN 325 MG TAB PO SCH ×2 (09:36→22:08)
[2018-11-03] MEDS: hydrOXYzine PAMOATE 25 MG CAP PO PRN (09:36)
[2018-11-03] MEDS: MELOXICAM 7.5 MG TAB PO SCH (09:38)
[2018-11-03] MEDS: FLUTICASONE 50MCG/SPRAY NASAL 16GM EA NOSTRIL SCH (09:40)
[2018-11-03] MEDS: LISINOPRIL 5 MG TAB PO SCH (09:40)
[2018-11-03 11:03] LABS: Basophils % (A) 0 %; Eosinophils # (A) 0.1 k/uL (0-0.7); Eosinophils % (A) 1 %; HCT 37.9 % (34.0-46.0); Lymphocytes # (A) 1.8 k/uL (1.0-4.8); Lymphocytes % (A) 19 %; MCH 29.4 pg (25.0-35.0); MCHC 32.2 g/dL (31.0-37.0); MCV 91.3 fL (80.0-100.0); Mean Platelet Volume 7.3; Monocytes # (A) 0.6 k/uL (0-1.0); Monocytes % (A) 7 %; Neutrophils # (A) 6.8 k/uL (1.3-7.7); Neutrophils % (A) 72 %; Platelet Count 297 k/uL (150-450); RBC 4.16 m/uL (3.80-5.40); RDW 13.4 % (11.5-15.5); WBC 9.4 k/uL (3.8-10.6)
[2018-11-03 11:05] LABS: HGB 12.2 gm/dL (11.4-16.0)
[2018-11-03] MEDS: FOLIC ACID 1 MG TAB PO SCH (12:31)
--- NOTE | 2018-11-03 14:02 | PN ---
PROGRESS NOTE DATE OF SERVICE: 11/03/2018 This 53-year-old woman who was admitted after left total knee arthroplasty improved significantly. No chest pain or palpitation. No fever. PHYSICAL EXAMINATION: On alert and oriented x3. Pulse is 52, blood pressure 119/81, respiration 16, temperature 97.4, pulse ox 94% on room air. HEENT: Conjunctivae normal. NECK: No jugular venous distention. CARDIOVASCULAR: S1 and S2 muffled. RESPIRATORY: Breath sounds diminished at the bases. No rhonchi. No crackles. Abdomen is soft, nontender. LEGS: Status post surgery. NERVOUS SYSTEM: No focal deficits. LABS: CBC noted, otherwise UA shows possible UTI. ASSESSMENT: 1. Status post left total knee arthroplasty. 2. Hypertension. 3. Urinary tract infection, present on admission. 4. Hyperlipidemia. 5. History of gastroesophageal reflux disease. 6. History of rheumatoid arthritis. 7. History of lap band. 8. History of adenoidectomy. RECOMMENDATIONS AND DISCUSSION: Recommend to continue current medications, continue with monitoring and symptomatic treatment. Otherwise at this time, a short course of antibiotics. Continue the rest of the medications. Follow closely with Dr. Echevarria in the outpatient setting. The rest of the recommendations per Orthopedic Surgery. Further recommendations to follow. MMODL / IJN: [id number] /
[2018-11-03] MEDS: ONDANSETRON ODT 4 MG TAB PO PRN (17:12)
[2018-11-03] MEDS: SENNOSIDES-DOCUSATE SODIUM 1 EACH TAB PO SCH (22:08)
[2018-11-04] MEDS: HYDROcodone/APAP 5-325MG 1 EACH TAB PO PRN ×3 (04:58→16:21)
[2018-11-04] MEDS: ONDANSETRON ODT 4 MG TAB PO PRN ×2 (04:58→10:58)
[2018-11-04] MEDS: ATORVASTATIN 40 MG TAB PO SCH (07:49)
[2018-11-04] MEDS: PANTOPRAZOLE 40 MG TABLET PO SCH (07:49)
[2018-11-04] MEDS: ASPIRIN 325 MG TAB PO SCH (07:49)
[2018-11-04] MEDS: FLUTICASONE 50MCG/SPRAY NASAL 16GM EA NOSTRIL SCH (07:50)
[2018-11-04] MEDS: LISINOPRIL 5 MG TAB PO SCH (07:50)
[2018-11-04] MEDS: CHOLECALCIFEROL 1,000 UNIT TAB PO SCH (07:50)
[2018-11-04] MEDS: LORATADINE 10 MG TAB PO SCH (07:51)
[2018-11-04] MEDS: MELOXICAM 7.5 MG TAB PO SCH (07:51)
[2018-11-04] MEDS: hydrOXYzine PAMOATE 25 MG CAP PO PRN ×2 (10:58→16:22)
[2018-11-04] MEDS: FOLIC ACID 1 MG TAB PO SCH (11:30)
[2018-11-04 15:24] VITALS: BP 94/54; PULSE 86; RESP 16; TEMP 98.9
--- NOTE | 2018-11-06 00:28 | PN ---
PROGRESS NOTE DATE OF SERVICE: 11/04/2018 PRESENTING COMPLAINT: Left knee surgery. INTERVAL HISTORY: The patient seen by me yesterday on November 04, 2018. Could not dictate because the computers were down. Patient's pain is better controlled. Did tolerate a diet. Did work with therapy. No new issues. No chest pain or short of breath. REVIEW OF SYSTEMS: Done for constitutional, cardiovascular, GI, pulmonary and relevant findings as above. MEDICATIONS: Current medications reviewed. PHYSICAL EXAMINATION: VITAL SIGNS: Temperature 98.9, pulse 86, respirations 16, blood pressure 94/54. Pulse ox 97% on room air. GENERAL APPEARANCE: Sitting up. Comfortable. EYES: Pupils equal. Conjunctivae normal. NECK: JVD not raised. Mass not palpable. RESPIRATORY: Effort normal. LUNGS: Fair entry. CARDIOVASCULAR: 1st and 2nd sounds normal. No edema. ABDOMEN: Soft, nontender. Liver and spleen not palpable. PSYCHIATRY: Alert and oriented times three. Mood and affect normal. INVESTIGATIONS: White count 9.5, hemoglobin 12.2. ASSESSMENT: 1. Left total knee arthroplasty. 2. Morbid obesity BMI 44.6. 3. Gastroesophageal reflux disease. 4. Hyperlipidemia. 5. Essential hypertension. 6. History of lap band. 7. Primary osteoarthritis. PLAN: Continue current medication and treatment plan. For DVT prophylaxis, patient is on aspirin 325 p.o. b.i.d. per the orthopedic team. Other home medications to continue. The patient to follow up with Dr. Echevarria upon discharge. Care was discussed with the patient. Thank you, Dr. Enciso. MMBRIDGETTL / GLENNAN: [id number] /
== END 2018-11-04 16:35 | disposition home health service (06) | DRG 470 ==
LOC: 2ORMAIN 08:37 → 4SSUR 16:00
PROVIDERS: ADMIT Orthopaedic Surgery; ATTEND Orthopaedic Surgery
PROC: 0SRD069 Replacement of Left Knee Joint with Oxidized Zirconium on Polyethylene Synthetic Substitute, Cemented, Open Approach (ICD-10-PCS; principal; 2018-11-02 11:45)
DX: M17.12 Unilateral primary osteoarthritis, left knee (principal); N39.0 Urinary tract infection, site not specified; Z68.41 Body mass index [BMI] 40.0-44.9, adult; I10 Essential (primary) hypertension; E78.5 Hyperlipidemia, unspecified; M06.9 Rheumatoid arthritis, unspecified; M25.762 Osteophyte, left knee; K21.9 Gastro-esophageal reflux disease without esophagitis; E66.01 Morbid (severe) obesity due to excess calories; Z98.84 Bariatric surgery status; Z79.899 Other long term (current) drug therapy; Z82.49 Family history of ischemic heart disease and other diseases of the circulatory system
CPT/HCPCS: 81001; 85025; 88300

== ENCOUNTER → 2019-01-13 | Outpatient (CLI) | payer OTHER ==
[2019-01-13 17:16] LABS: Appearance,Urine Clear (Clear); Bilirubin,Urine Negative (Negative); Blood,Urine Trace (Negative); Color,Urine Light Yellow; Glucose,Urine (UA) Negative (Negative); HCT 44.4 % (34.0-46.0); HGB 13.9 gm/dL (11.4-16.0); Hyaline Casts,Urine 1 /lpf (0-2); Ketones,Urine Negative (Negative); Leukocyte Esterase,Urine Small (Negative); MCH 28.7 pg (25.0-35.0); MCHC 31.3 g/dL (31.0-37.0); MCV 91.7 fL (80.0-100.0); Mean Platelet Volume 6.8; Mucus,Urine Rare /hpf; Nitrite,Urine Negative (Negative); PH, Urine 5.5 (5.0-8.0); Platelet Count 300 k/uL (150-450); Protein,Urine Negative (Negative); RBC 4.84 m/uL (3.80-5.40); RBC,Urine <1 /hpf (0-5); RDW 13.7 % (11.5-15.5); Specific Gravity,Urine 1.014 (1.001-1.035); Squamous Epithelial Cell,Urine 1 /hpf (0-4); Urobilinogen,Urine <2.0 mg/dL (<2.0); WBC 5.7 k/uL (3.8-10.6); WBC,Urine 3 /hpf (0-5)
[2019-01-13 17:25] LABS: Partial Thromboplastin Time 23.5 sec (22.0-30.0); Prothrombin Time 10.7 sec (9.0-12.0)
[2019-01-13 17:36] LABS: Albumin 4.1 g/dL (3.5-5.0); Calcium 9.2 mg/dL (8.4-10.2); Potassium 4.1 mmol/L (3.5-5.1); Total Bilirubin 0.3 mg/dL (0.2-1.3); Total Protein 7.1 g/dL (6.3-8.2)
== END | disposition home or self-care (01) ==
LOC: LABPAT 16:19
PROVIDERS: ATTEND Orthopaedic Surgery
DX: Z01.812 Encounter for preprocedural laboratory examination (principal); M17.11 Unilateral primary osteoarthritis, right knee
CPT/HCPCS: 80053; 81001; 85027; 85610; 85730; 87070

== ENCOUNTER 2019-02-01 11:58 | Inpatient (IN) | payer OTHER ==
[2019-01-20 15:26] VITALS: BMI 43.2
[~2019-02-01 11:58] MED LIST changes: +ACETAMINOPHEN TAB 500 MG TAB PO ONE; -LIDOCAINE 1% 20 ML VIAL (10MG/ML) FOR IV START INTRADERMA PRN; +MELOXICAM 7.5 MG TAB PO ONE; -MIDAZOLAM (PF) 2 MG/2 ML VIAL IV PRN; +TRANEXAMIC ACID 1,000 MG in SODIUM CHLORIDE 0.9% 100 ML IVPB ONE; -TRANEXAMIC ACID 1,000 MG in SODIUM CHLORIDE 0.9% 50 ML IVPB ONE; +ceFAZolin 3 GM in SODIUM CHLORIDE 0.9% 100 ML IVPB ONE; -fentaNYL (PF) 50 MCG/ML 2 ML AMP IV PRN
[2019-02-01] MEDS ORDERED: LACTATED RINGERS 1,000 ML IV ONE ×2 (12:54→15:49)
[2019-02-01] MEDS ORDERED: DEXAMETHASONE SOD PHOSPHATE 10 MG/ML 1 ML VIAL IV ONE (12:55)
[2019-02-01] MEDS ORDERED: ONDANSETRON 4 MG/2 ML VIAL IVP ONE ×2 (12:55→16:20)
[2019-02-01] MEDS ORDERED: MIDAZOLAM 2 MG/2 ML VIAL IV ONE (13:17)
[2019-02-01] MEDS ORDERED: fentaNYL (PF) 50 MCG/ML 2 ML AMP IV ONE (13:17)
[2019-02-01] MEDS ORDERED: hydrOXYzine PAMOATE 25 MG CAP PO PRN (13:54)
[2019-02-01] MEDS ORDERED: HYDROcodone/APAP 5-325MG 1 EACH TAB PO PRN (13:54)
[2019-02-01] MEDS ORDERED: HYDROmorphone 0.5 MG/0.5 ML SYRINGE IVP PRN ×2 (13:54)
[2019-02-01] MEDS ORDERED: MAGNESIUM HYDROXIDE 2,400 MG/10 ML CUP PO PRN (13:54)
[2019-02-01] MEDS ORDERED: DIAZEPAM 5 MG TAB PO PRN (13:54)
[2019-02-01] MEDS ORDERED: HYDROmorphone 1 MG/ML 1 ML SYRINGE IVP PRN (13:54)
[2019-02-01] MEDS ORDERED: NA PHOS,M-B/NA PHOS,DI-BA 133 ML ENEMA RECTAL PRN (13:54)
[2019-02-01] MEDS ORDERED: ONDANSETRON 4 MG/2 ML VIAL IVP PRN (13:54)
[2019-02-01] MEDS ORDERED: BISACODYL 10 MG SUPP RECTAL PRN (13:54)
[2019-02-01] MEDS ORDERED: NALOXONE 0.4 MG/ML 1 ML VIAL IV PRN (13:54)
[2019-02-01] MEDS ORDERED: MIDAZOLAM 2 MG/2 ML VIAL ONE (14:24)
[2019-02-01] MEDS ORDERED: PROPOFOL 10 MG/ML 20 ML VIAL IV ONE (14:24)
[2019-02-01] MEDS ORDERED: SODIUM CHLORIDE 0.9% 100 ML BAG ONE (14:24)
[2019-02-01] MEDS ORDERED: fentaNYL (PF) 50 MCG/ML 2 ML AMP ONE (14:24)
[2019-02-01] MEDS ORDERED: TRANEXAMIC ACID 1,000 MG/10 ML VIAL ONE (14:24)
[2019-02-01] MEDS ORDERED: ceFAZolin 3,000 MG in SODIUM CHLORIDE 0.9% IRRIGATIO 3,000 ML IRRIGATION ONE (14:56)
--- NOTE | 2019-02-01 15:48 | P.OP ---
Date of Procedure: 02/01/19 Preoperative Diagnosis: Severe osteoarthritis right knee Postoperative Diagnosis: Severe osteoarthritis right knee Procedure(s) Performed: Right total knee arthroplasty Implants: Sky [employer] Nephew Journey II CR Oxinium cruciate retaining femoral component size 5, right Sky [employer] Nephew Journey right nonporous tibial baseplate size 4 Sky [employer] Nephew Journey II, XLPE CR articular insert, size 10 mm, Size 3-4 right [employer]hew Journey BCS resurfacing oval patellar component, 29 mm All components were cemented using [place] R bone cement.. The articulation is Oxinium on polyethylene. Anesthesia: spinal Surgeon: Tuan Enciso [employer]p [employer] #1: Amanda Dewitt Estimated Blood Loss (ml): 50 Pathology: other (Bone and cartilage) Condition: stable Disposition: PACU Indications for Procedure: After failure of conservative treatment we discussed the surgical and nonsurgical treatment options at length. Patient wishes to proceed with a total knee arthroplasty. Complications specific to this procedure were discussed at length, including but not limited to infection, bleeding, stiffness, and nerve injury. Patient is aware of all these complications and informed consent was obtained Operative Findings: The operative findings are consistent with severe osteoarthritis of the right knee Description of Procedure: Patient was seen in the preoperative area consent was reviewed and operative site was marked with a skin marker. An adductor canal pain catheter was placed by anesthesia in the preoperative area. Patient was then brought to the operating room and given preoperative antibiotics intravenously. A spinal anesthetic was administered by the anesthesia department. A tourniquet was placed on the upper thigh and the lower extremity was prepped and draped in usual sterile fashion. A gram of transexamic acid was given. A universal timeout was then performed which confirmed the patient's name, surgical site, ALLERGIES, and consent. The lower extremity was then exsanguinated and tourniquet was inflated to 250 mmHg. A standard and anterior midline approach to the knee was performed. The skin and subcutaneous tissue was dissected down to the patellar tendon. A medial parapatellar arthrotomy was then performed. The knee was then extended, the patellar was everted, and the knee was again flexed. Anterior horns of both menisci were excised, and a release was performed to the posterior medial aspect of the knee. On gross visual inspection, there was complete loss of articular cartilage in the medial and patellofemoral joint spaces. There was also significant cartilage damage in the lateral compartment. There were multiple periarticular osteophytes which were then removed with a Ronguer. The femoral canal was then opened with the appropriate drill, and the intramedullary femoral cutting guide was then placed and set for 5 of valgus. The distal femoral cutting block was then pinned in place, and the distal femur was then cut. The cutting block was then removed and the cut was checked for flatness. Next, the sizing guide was then placed and set for 3 external rotation based off of the epicondylar axis and Whitesides line. After the femur was sized, the appropriate 4-in-1 cutting block was then pinned in place. The anterior condyles were cut without notching. The posterior and chamfer cuts were performed while protecting the collateral ligaments. The cutting block was then removed, and the femoral canal was plugged with autologous bone. Attention was then directed to the tibia. The remaining ACL was removed with a Ronguer, and the tibia was then gently subluxed forward with a large bent knee retractor. Any remaining menisci was excised. The posterior lateral corner was cauterized in order to cauterize the lateral geniculate artery. The extra medullary tibial cutting guide was then placed, set for the appropriate rotation, slope, and depth of resection. The proximal tibia cutting guide was t hen pinned in place. Proximal tibia was then cut and sized. Next trials were then placed with the appropriate-sized insert. The knee was able to fully extend and flex to 130 and was stable throughout all range of motion. The knee was then extended, patella everted. Patella was then measured, and then using an osteotomy guide, the patella was cut at the appropriate level. The patella was then measured and drilled and the patella trial was then placed. The knee was then taken through range of motion with the patella trial and the patella tracked normally. The knee was then extended patella trial was then removed and the patella was everted. Knee was then flexed and lug holes were drilled through the femoral trial and the femoral trial was then removed. The tibial was then exposed, and the tibial broach guide was then pinned in place after it was set for the appropriate rotation to allow for the most coverage without overhang. The tibia was then reamed and broached. The cut surfaces of bone were then irrigated with pulsatile lavage. The posterior structures were injected with the ropivacaine solution. The knee was also irrigated with Irrisept solution. The components were then opened, the cement was mixed, and the components were then cemented in place. The cement was allowed to harden with the knee in full extension. While the cement was hardening, the remaining soft tissues were then injected with a ropivacaine solution, which consisted of 246.25 mg of ropivacaine, 0.5 mg of epinephrine, 30 mg of Toradol, 80 g of clonidine, and 48.45 mL of sterile water, for a total of 100 mL of fluid injected. After the cemented hardened. The tourniquet was released, and hemostasis was obtained. A second gram of transexamic acid was given. The knee was again irrigated. The knee was again taken through range of motion and found to be stable throughout all range of motion of 0-130, and the patella tracked normally. The fascia was then closed with #2 strata fix suture. The subcutaneous tissue was closed with 3-0 Vicryl and 3-0 strata fix. Dermabond glue was used for the skin and placed with the knee in flexion. The patient was placed in a sterile silver dressing. Patient was then transferred to recovery room in stable condition. The orthodontic technician assistant KRYSTIAN Yarbrough was required due the complexity surgery and the need for a skilled surgical lead. She assisted in positioning, draping, retraction, and closure of the wound.
[2019-02-01] MEDS ORDERED: ROPIVACAINE 1,100 MG, SODIUM CHLORIDE 0.9% 500 ML 330 ML MISCELLANE PRN ×2 (16:20)
--- NOTE | 2019-02-01 16:22 | P.ONQ ---
Anesthesiology Proc Note - PNB - Peripheral Nerve Block Performed Right Adductor Canal Infusion Time Out Performed: Yes Procedure Start Time: 13:15 Indication: Acute Post-Operative Pain Sedation Type: Sedate with meaningful contact maintained Preparation: Sterile Prep Position: Supine Catheter Depth at Skin (cm): 10 Catheter: Indwelling Needle Types: Other (see comment) (Monique) Needle Size: 100mm (4") Needle Gauge: 18, 21 Technique: Ultrasound Injectate: 0.5% Ropivacaine (see comment for volume) (20cc) Blood Aspirated: No Pain Paresthesia on Injection Noted: No Resistance on Injection: Normal Events: Uneventful and Well Tolerated
--- NOTE | 2019-02-01 16:46 | XR ---
PROCEDURE: XR knee limited RT - 2 views DATE AND TIME: 02/01/2019 4:30 PM CLINICAL INDICATION: PHH; Evaluation for Postop abnormality and alignment TECHNIQUE: Department protocol COMPARISON: None FINDINGS: AP and crosstable lateral views show the right TKR to be anatomic in its positioning and al ignment. Postprocedural changes are noted. No unexpected findings. IMPRESSION: Postoperative TKR 2 views
[2019-02-01] MEDS: HYDROcodone/APAP 5-325MG 1 EACH TAB PO PRN (18:41)
[2019-02-01] MEDS: SODIUM CHLORIDE 0.9% 1,000 ML IV SCH (19:05)
[2019-02-01] MEDS ORDERED: SENNOSIDES-DOCUSATE SODIUM 1 EACH TAB PO SCH (21:00)
[2019-02-01] MEDS: ASPIRIN 325 MG TAB PO SCH (21:03)
[2019-02-01] MEDS: ceFAZolin 3 GM in SODIUM CHLORIDE 0.9% 100 ML IVPB SCH (21:03)
[2019-02-01] MEDS ORDERED: hydrOXYzine HCL 25 MG TAB PO PRN (22:35)
[2019-02-02] MEDS: HYDROcodone/APAP 5-325MG 1 EACH TAB PO PRN ×4 (00:03→17:23)
[2019-02-02] MEDS: SODIUM CHLORIDE 0.9% 1,000 ML IV SCH (04:13)
[2019-02-02] MEDS: ceFAZolin 3 GM in SODIUM CHLORIDE 0.9% 100 ML IVPB SCH (05:31)
--- NOTE | 2019-02-02 07:17 | CONS ---
CONSULTATION DATE OF CONSULTATION: 02/01/2019 REASON FOR CONSULTATION: Medical management requested by Dr. Enciso. CONSULTATION: This is a very pleasant 53-year-old patient who follows Dr. Echevarria. Chronic stable medical conditions include GERD, hypertension, hyperlipidemia, rheumatoid arthritis. The patient also has lap band and varicose veins. The patient did undergo right total knee arthroplasty. Postprocedure, pain is controlled. No nausea, vomiting. Did tolerate her supper. Sitting up, comfortable. REVIEW OF SYSTEMS: CONSTITUTIONAL: None. HEENT: None. RESPIRATORY: None. CARDIOVASCULAR: None. GASTROINTESTINAL: Heartburn. GENITOURINARY: None. MUSCULOSKELETAL: Arthritic pain in the joints. DERMATOLOGICAL: None. HEMATOLOGIC: None. LYMPHATIC: None. PSYCHIATRY: None. NEUROLOGICAL: None. PAST MEDICAL HISTORY: GERD, hyperlipidemia, hypertension, rheumatoid arthritis, lap band with fluid in it, varicose veins. PAST SURGICAL HISTORY: Bariatric surgery, tonsillectomy, lap band in 2009, cervical cerclage, left total knee. SOCIAL HISTORY: Does not smoke. Alcohol rarely. HOME MEDICATIONS: 1. Atarax 50 mg p.o. t.i.d. p.r.n. 2. Nasacort 1 spray each nostril daily. 3. Prilosec 20 mg with breakfast. 4. Methotrexate 2.5 p.o. q.14 days. 5. Zestril 5 mg p.o. daily. 6. Motrin 800 mg q.8 p.r.n. 7. [place] 5 one to two tablets q.4 to 6 p.r.n. 8. Folic acid 1 mg p.o. daily. 9. Vitamin D3, 5000 units p.o. daily. 10.Lipitor 40 mg p.o. daily. 11.Humira Crohn's 40 mg subcu every 14 days. ALLERGIES: None. PHYSICAL EXAMINATION: On examination, temperature 97.7, pulse 90, respiration 16, blood pressure 128/77, pulse ox 96% on room air. GENERAL APPEARANCE: Well built, BMI 43.3 sitting up, comfortable. EYES: Pupils equal. Conjunctivae normal. HENT: External appearance of nose and ears normal. Oral cavity normal. NECK: JVD not raised. Mass not palpable. RESPIRATORY: Effort normal. Lungs are clear. CARDIOVASCULAR: First and second sounds normal. No edema. ABDOMEN: Soft, nontender. Liver and spleen not palpable. LYMPHATIC: No lymph node palpable of the neck or axilla. PSYCHIATRY: Alert and oriented x3. Mood and affect normal, NEUROLOGICAL: Pupils equal. Cranial nerves grossly intact. EXTREMITIES: Evidence of arthritis especially in the hand. Right knee in a dressing. INVESTIGATIONS: Lab work from to 01/13/2019 shows white count 5.7, hemoglobin 13.9, potassium 4.1, creatinine 0.9. ASSESSMENT: 1. Right total knee arthroplasty. 2. Gastroesophageal reflux disease. 3. Hyperlipidemia. 4. Essential hypertension. 5. Rheumatoid arthritis. 6. The patient has a lap band. 7. Obesity; body mass index 43.3. PLAN: Home medications will be resumed. Patient is on aspirin for DVT prophylaxis. Pain control is in place. Care was discussed with the patient. Questions were answered. Patient should follow with Dr. Echevarria upon discharge. Thank you Dr. Enciso. AFSANEH / GLENNAN: [id number] /
[2019-02-02] MEDS ORDERED: PANTOPRAZOLE 40 MG TABLET PO SCH (07:30)
[2019-02-02 08:24] VITALS: RESP 16
[2019-02-02] MEDS ORDERED: LISINOPRIL 5 MG TAB PO SCH (09:00)
[2019-02-02] MEDS ORDERED: MELOXICAM 7.5 MG TAB PO SCH (09:00)
[2019-02-02] MEDS ORDERED: ATORVASTATIN 40 MG TAB PO SCH (09:00)
[2019-02-02] MEDS: ASPIRIN 325 MG TAB PO SCH (09:02)
--- NOTE | 2019-02-02 09:10 | P.DS ---
Providers Date of admission: 02/01/19 11:58 Expected date of discharge: 02/02/19 Attending physician: Tuan Enciso Consults: 02/01/19 17:43 Consult Physician Routine Consulting Provider: Ricki Veliz Consult Reason/Comments: medical management Do you want consulting provider notified?: Yes Primary care physician: Franco Echevarria - Discharge Diagnosis(es) (1) Osteoarthritis of right knee Current Visit: Yes Status: Acute (2) Status post total right knee replacement Current Visit: Yes Status: Acute Hospital Course: This is a 53-year-old female with known history of degenerative arthritis of the right knee. The patient presents for evaluation. After discussion and consideration patient elects to proceed with total knee arthroplasty. The patient is seen preoperatively by Dr. Enciso and medically cleared for surgery by their primary care physician. Patient is admitted to [facility] on 02/01/2019 for total knee arthroplasty. The procedures performed without complication or sequelae. The patient is doing well postoperatively. Labs and vital signs are stable on day of discharge. On day of discharge patient's knee incision is healing well. There is minimal erythema. There is no drainage noted at this time. There is minimal soft tissue swelling to the knee. Patient has full foot and ankle motion without difficulty or pain. Calf is soft and nontender to palpation. Neurovascular sta tus to the right lower extremity is intact. Patient is discharged home in good condition. Opioid start talking form is reviewed and signed at patient bedside. Please see med rec for accurate list of home medications. Plan - Discharge Summary Discharge Rx Participant: No New Discharge Prescriptions: New HYDROcodone/APAP 5-325MG [[place] 5-325] 1 - 2 tab PO Q6HR PRN #56 tab PRN Reason: Pain No Action Cholecalciferol [Vitamin D3] 5,000 unit PO DAILY Atorvastatin [Lipitor] 40 mg PO DAILY Adalimumab [Humira Crohn's] 40 mg SQ Q14D Triamcinolone Acetonide [Nasacort] 1 spray EA NOSTRIL DAILY Lisinopril [Zestril] 5 mg PO DAILY Folic Acid 1 mg PO DAILY Ibuprofen [Motrin] 800 mg PO Q8H PRN PRN Reason: Pain hydrOXYzine HCL [Atarax] 50 mg PO TID PRN PRN Reason: HIVES Methotrexate [Xatmep Oral Soln] 2.5 mg PO Q14D Omeprazole [PriLOSEC] 20 mg PO AC-BRKFST HYDROcodone/APAP 5-325MG [[place] 5-325] 1 - 2 tab PO Q4-6H PRN #84 tab PRN Reason: Pain Discharge Medication List Adalimumab [Humira Crohn's] 40 mg SQ Q14D 01/05/17 [History] Atorvastatin [Lipitor] 40 mg PO DAILY 01/05/17 [History] Cholecalciferol [Vitamin D3] 5,000 unit PO DAILY 01/05/17 [History] Folic Acid 1 mg PO DAILY 01/05/17 [History] Lisinopril [Zestril] 5 mg PO DAILY 01/05/17 [History] Triamcinolone Acetonide [Nasacort] 1 spray EA NOSTRIL DAILY 01/05/17 [History] Ibuprofen [Motrin] 800 mg PO Q8H PRN 06/14/18 [History] Methotrexate [Xatmep Oral Soln] 2.5 mg PO Q14D 10/27/18 [History] Omeprazole [PriLOSEC] 20 mg PO AC-BRKFST 10/27/18 [History] hydrOXYzine HCL [Atarax] 50 mg PO TID PRN 10/27/18 [History] HYDROcodone/APAP 5-325MG [[place] 5-325] 1 - 2 tab PO Q4-6H PRN #84 tab 11/03/18 [Rx] HYDROcodone/APAP 5-325MG [[place] 5-325] 1 - 2 tab PO Q6HR PRN #56 tab 02/02/19 [Rx] Follow up Appointment(s)/Referral(s): Franco Echevarria MD [Primary Care Provider] - 1 Week Tuan Enciso DO [Doctor of Osteopathic Medicine] - 2 Weeks Activity/Diet/Wound Care/Special Instructions: Weightbearing as tolerated with a walker. CPM 5-6h daily. Leave dressing intact. May be removed by home care nurse or by patient in 10 days. May shower with dressing on. Anticoagulation with aspirin 325mg twice daily for 30 days. Patient states that she has enough aspirin and stool softener at home and does not need prescriptions for these. Please follow up with [facility] and call with any questions or concerns, . Discharge Disposition: HOME WITH HOME HEALTH SERVICES
[2019-02-02 09:35] LABS: Basophils % (A) 0 %; Eosinophils # (A) 0.1 k/uL (0-0.7); Eosinophils % (A) 1 %; HCT 38.3 % (34.0-46.0); HGB 12.2 gm/dL (11.4-16.0); Hypochromasia Slight; Lymphocytes # (A) 1.3 k/uL (1.0-4.8); Lymphocytes % (A) 13 %; MCH 28.7 pg (25.0-35.0); MCHC 31.8 g/dL (31.0-37.0); MCV 90.4 fL (80.0-100.0); Mean Platelet Volume 7.2; Monocytes # (A) 0.6 k/uL (0-1.0); Monocytes % (A) 6 %; Neutrophils # (A) 7.9 k/uL (1.3-7.7); Neutrophils % (A) 79 %; Platelet Count 280 k/uL (150-450); RBC 4.23 m/uL (3.80-5.40); RDW 13.5 % (11.5-15.5)
--- NOTE | 2019-02-02 10:10 | P.PN ---
Progress Note - Text Progress Note Date: 02/02/19 Pt is a 53 yo pod #1 for right knee replacement. Adductor canal cath placed for post op pain control. Pt doing well. VAS =2. Continue current TX.
[2019-02-02] MEDS ORDERED: FOLIC ACID 1 MG TAB PO SCH (12:00)
[2019-02-02 15:50] VITALS: BP 126/73; PULSE 78; TEMP 97.5
--- NOTE | 2019-02-03 00:18 | P.PN ---
Subjective this is a pleasant 53 yo F with PMH of GERD, HTN , HLP , Rheumatoid arthritis , degenerative joint disease who presents for right knee arthroplasty , her post op pain is well controlled. pt today was at her baseline with no chest pain no dyspnea, no change in urine or bowel habit , no nausea or vomiting , no abd pain , she is tolerating diet well . no fever. she is supposed to be discharged today by the primary team . vitals looks stable, and CBC was unremarkable. Objective - Vital Signs Vital signs: Vital Signs Temp 97.5 F L 02/02/19 15:40 Pulse 78 02/02/19 15:40 Resp 16 02/02/19 15:40 BP 126/73 02/02/19 15:40 Pulse Ox 98 02/02/19 15:40 Intake & Output 02/02/19 02/02/19 02/03/19 06:59 18:59 06:59 Intake Total 660 880 Balance 660 880 Intake: Intake, IV Titration 560 280 Amount Sodium Chloride 0.9% 1, 560 280 000 ml @ 70 mls/hr IV . [id number] [facility] Rx#:[id number] Oral 100 600 Other: Voiding Method Toilet # Voids 1 4 - Exam GENERAL: The patient is alert and oriented x3, not in any acute distress. Well developed, well nourished. HEENT: Pupils are round and equally reacting to light. EOMI. No scleral icterus. No conjunctival pallor. Normocephalic, atraumatic. No pharyngeal erythema. No thyromegaly. CARDIOVASCULAR: S1 and S2 present. No murmurs, rubs, or gallops. PULMONARY: Chest is clear to auscultation, no wheezing or crackles. ABDOMEN: Soft, nontender, nondistended, normoactive bowel sounds. No palpable organomegaly. MUSCULOSKELETAL: No joint swelling or deformity. EXTREMITIES: No cyanosis, clubbing, or pedal edema. right knee wound is intact with minimal erythema and swelling , expected from surgery . NEUROLOGICAL: Gross neurological examination did not reveal any focal deficits. SKIN: No rashes. - Labs CBC & Chem 7: 02/02/19 07:14 Labs: Abnormal Lab Results - Last 24 Hours (Table) 02/02/19 Range/Units 07:14 Neutrophils # 7.9 H (1.3-7.7) k/uL Assessment and Plan Assessment: osteoarthritis , status post right total knee replacement surgery essential HTN hyperlipidmia h/o GERD h/o Rheumatoid arthritis Plan: this is a pleasant 53 yo F who presents for right knee replacement surgery. pt looks stable post operatively and doing well , we would recommend GI and DVT prophylaxis which is managment by the primary team especially the DVT prophylaxis. pain manamgnet as per primary team as well , however pt pain looks controlled now. Labs and medication were reviewed.. Continue same treatment. Continue with symptomatic treatment. Resume home medication. Monitor lytes and vitals pt was instructed to follow up with her pcp in one week and with orthopedic team as instructed by them thank you for consulting us
== END 2019-02-02 18:10 | disposition home health service (06) | DRG 470 ==
LOC: 2ORMAIN 11:58 → 4SSUR 16:20
PROVIDERS: ADMIT Orthopaedic Surgery; ATTEND Orthopaedic Surgery
PROC: 0SRC069 Replacement of Right Knee Joint with Oxidized Zirconium on Polyethylene Synthetic Substitute, Cemented, Open Approach (ICD-10-PCS; principal; 2019-02-01 14:00)
DX: M17.11 Unilateral primary osteoarthritis, right knee (principal); K50.90 Crohn's disease, unspecified, without complications; Z68.41 Body mass index [BMI] 40.0-44.9, adult; M06.9 Rheumatoid arthritis, unspecified; E66.9 Obesity, unspecified; E78.5 Hyperlipidemia, unspecified; K21.9 Gastro-esophageal reflux disease without esophagitis; I10 Essential (primary) hypertension; I83.90 Asymptomatic varicose veins of unspecified lower extremity; Z79.899 Other long term (current) drug therapy; Z96.652 Presence of left artificial knee joint; Z98.84 Bariatric surgery status
CPT/HCPCS: 85025; 88300

== ENCOUNTER → 2021-05-21 | Outpatient (CLI) | payer OTHER ==
[2021-05-21 11:26] VITALS: BP 122/74; PULSE 79; TEMP 98; BMI 42.9
--- NOTE | 2021-05-22 10:55 | P.HPBAR ---
Bariatric H&P - History & Physicial H&P Date: 05/21/21 History & Physicial: Visit/CC: lap band follow up Patient initial contact: Initial weight: 124.012 kg Initial weight in pounds: 273.40 Height: 5 ft 5 in Initial BMI: 45.5 Last weight: Current weight: 117.027 kg Current weight in pounds: 258.00 Current BMI: 42.9 [place] body weight (based on NIH guidelines): 56.699 kg Excess body weight loss: 10.3% The patient is a 56 year-old F who presents for Bariatric Assessment. Patient presents due to chronic dysphagia. She wishes to have her band emptied and removed. Past Medical History Past Medical History: Hyperlipidemia, Hypertension, Rheumatoid Arthritis (RA) Additional Past Medical History / Comment(s): HAS LAP BAND, HAD 2 FILLS IN PAST FEW MONTHS, GERD INCREASED - BEGAN PPI RX. SOFIE KNEE PAIN. HIVES ON TORSO FOR PAST WEEK, TOOK STEROID DOSE PACK X1. HX YEAST INFECTIONS R/T RA TX. NO MENSES SINCE RA TX BEGAN 2014. History of Any Multi-Drug Resistant Organisms: None Reported Past Surgical History: Bariatric Surgery, Tonsillectomy Additional Past Surgical History / Comment(s): Lap band placed 2009 (DR JOHNSON)., Cervical Cerclage., EGD. ,TOTAL LEFT KNEE . TRK 02/01/2019 Past Anesthesia/Blood Transfusion Reactions: No Reported Reaction Additional Past Anesthesia/Blood Transfusion Reaction / Comm: NO blood transfusions to date Past Psychological History: No Psychological Hx Reported Smoking Status: Never smoker Past Alcohol Use History: Rare Past Drug Use History: None Reported - Past Family History Father Family Medical History: Coronary Artery Disease (CAD), Hypertension, Myocardial Infarction ([place]), Prostate Disorder Additional Family Medical History / Comment(s): at age 81 Mother Family Medical History: Cancer Additional Family Medical History / Comment(s): from cervical cancer dx at age 79 Surgical - Exam Vital Signs Temp Pulse BP 98 F 79 122/74 05/21/21 11:22 05/21/21 11:22 05/21/21 11:22 - General well developed, well nourished, no distress - Eyes PERRL - ENT normal pinna - Neck no masses - Respiratory normal expansion - Cardiovascular Rhythm: regular - Abdomen Abdomen: soft, non tender Bariatric Assessment & Plan Plan: Patient LAP-BAND was empty. Should 4 mL in her band. She'll be scheduled for removal of her LAP-BAND. Bariatric Checklist Checklist: Plan: Checklist: EGD: 1. Hiatal hernia: 2. H. Pylori: HgbA1c: Vitamin D: Smoking: Never smoker Primary care physician referral: link Psychiatry clearance: Cardiology clearance: Sleep study: Diet journal: VTE risk score: VTE risk level: Rehab needs at discharge:
== END ==
LOC: BARWHC3 09:40
PROVIDERS: ATTEND Surgery
DX: Z09 Encounter for follow-up examination after completed treatment for conditions other than malignant neoplasm (principal); R13.10 Dysphagia, unspecified; E78.5 Hyperlipidemia, unspecified; I10 Essential (primary) hypertension; M06.9 Rheumatoid arthritis, unspecified; Z98.84 Bariatric surgery status
CPT/HCPCS: 99212

== ENCOUNTER → 2022-12-01 | Outpatient (CLI) | payer OTHER ==
[2022-12-01 14:47] VITALS: BP 144/103; PULSE 90; TEMP 98.2; BMI 46.6
--- NOTE | 2022-12-22 15:19 | P.HPBAR ---
Bariatric H&P - History & Physicial H&P Date: 12/01/22 History & Physicial: Visit/CC: lap band Patient initial contact: Initial weight: 124.012 kg Initial weight in pounds: 273.40 Height: 5 ft 6 in Initial BMI: 44.1 Last weight: Current weight: 131.088 kg Current weight in pounds: 289.00 Current BMI: 46.6 [place] body weight (based on NIH guidelines): 58.967 kg Excess body weight loss: The patient is a 57 year-old F who presents for Bariatric Assessment. This is a 57-year-old female who presents today for LAP-BAND follow-up. Patient is requesting a fill her band. Past Medical History Past Medical History: Hyperlipidemia, Hypertension, Rheumatoid Arthritis (RA) Additional Past Medical History / Comment(s): HAS LAP BAND, HAD 2 FILLS IN PAST FEW MONTHS, GERD INCREASED - BEGAN PPI RX. SOFIE KNEE PAIN. HIVES ON TORSO FOR PAST WEEK, TOOK STEROID DOSE PACK X1. HX YEAST INFECTIONS R/T RA TX. NO MENSES SINCE RA TX BEGAN 2014. History of Any Multi-Drug Resistant Organisms: None Reported Past Surgical History: Bariatric Surgery, Joint Replacement, Tonsillectomy Additional Past Surgical History / Comment(s): Lap band placed 2009 (DR JOHNSON)., Cervical Cerclage., EGD. ,TOTAL SOFIE KNEE . TRK 02/01/2019 Past Anesthesia/Blood Transfusion Reactions: No Reported Reaction Additional Past Anesthesia/Blood Transfusion Reaction / Comm: NO blood transfusions to date Past Psychological History: No Psychological Hx Reported Smoking Status: Never smoker Past Alcohol Use History: Rare Past Drug Use History: None Reported - Past Family History Father Family Medical History: Coronary Artery Disease (CAD), Hypertension, Myocardial Infarction ([place]), Prostate Disorder Additional Family Medical History / Comment(s): at age 81 Mother Family Medical History: Cancer Additional Family Medical History / Comment(s): from cervical cancer dx at age 79 Surgical - Exam Vital Signs Temp Pulse BP 98.2 F 90 144/103 12/01/22 14:43 12/01/22 14:43 12/01/22 14:43 - General well developed, well nourished, no distress - Eyes PERRL - ENT normal pinna - Neck no masses - Abdomen Abdomen: soft, non tender Bariatric Assessment & Plan Plan: Patient LAP-BAND was adjusted. She had 1 mL added to the band. She'll follow- up in 4 weeks. Bariatric Checklist Checklist: Plan: Checklist: EGD: 1. Hiatal hernia: 2. H. Pylori: HgbA1c: Vitamin D: Smoking: Never smoker Primary care physician referral: link Psychiatry clearance: Cardiology clearance: Sleep study: Diet journal: VTE risk score: VTE risk level: Rehab needs at discharge:
== END ==
LOC: BARWHC3 14:14
PROVIDERS: ATTEND Surgery
DX: E66.01 Morbid (severe) obesity due to excess calories (principal); Z98.84 Bariatric surgery status; Z68.42 Body mass index [BMI] 45.0-49.9, adult; E78.5 Hyperlipidemia, unspecified; I10 Essential (primary) hypertension; M06.9 Rheumatoid arthritis, unspecified; Z79.899 Other long term (current) drug therapy
CPT/HCPCS: 99212

== ENCOUNTER → 2023-01-12 | Outpatient (CLI) | payer OTHER ==
[2023-01-12 15:04] VITALS: BP 143/82; PULSE 83; TEMP 98.2; BMI 44.5
--- NOTE | 2023-02-10 12:27 | P.HPBAR ---
Bariatric H&P - History & Physicial H&P Date: 01/12/23 History & Physicial: Visit/CC: lap band follow up Patient initial contact: Initial weight: 124.012 kg Initial weight in pounds: 273.40 Height: 5 ft 6 in Initial BMI: 44.1 Last weight: Current weight: 125.191 kg Current weight in pounds: 276.00 Current BMI: 44.5 [place] body weight (based on NIH guidelines): 58.967 kg Excess body weight loss: The patient is a 57 year-old F who presents for Bariatric Assessment. Patient resents today for LAP-BAND follow-up. She's had some mild complaints of GERD. Her BMI is 45. Past Medical History Past Medical History: Hyperlipidemia, Hypertension, Rheumatoid Arthritis (RA) Additional Past Medical History / Comment(s): HAS LAP BAND, HAD 2 FILLS IN PAST FEW MONTHS, GERD INCREASED - BEGAN PPI RX. SOFIE KNEE PAIN. HIVES ON TORSO FOR PAST WEEK, TOOK STEROID DOSE PACK X1. HX YEAST INFECTIONS R/T RA TX. NO MENSES SINCE RA TX BEGAN 2014. History of Any Multi-Drug Resistant Organisms: None Reported Past Surgical History: Bariatric Surgery, Joint Replacement, Tonsillectomy Additional Past Surgical History / Comment(s): Lap band placed 2009 (DR JOHNSON)., Cervical Cerclage., EGD. ,TOTAL SOFIE KNEE . TRK 02/01/2019 Past Anesthesia/Blood Transfusion Reactions: No Reported Reaction Additional Past Anesthesia/Blood Transfusion Reaction / Comm: NO blood transfusions to date Smoking Status: Never smoker - Past Family History Father Family Medical History: Coronary Artery Disease (CAD), Hypertension, Myocardial Infarction ([place]), Prostate Disorder Additional Family Medical History / Comment(s): at age 81 Mother Family Medical History: Cancer Additional Family Medical History / Comment(s): from cervical cancer dx at age 79 Surgical - Exam Vital Signs Temp Pulse BP 98.2 F 83 143/82 01/12/23 15:02 01/12/23 15:02 01/12/23 15:02 - General well developed, well nourished, no distress - Eyes PERRL - Neck no masses - Abdomen Abdomen: soft, non tender Bariatric Assessment & Plan Plan: Morbid obesity, BMI 45. Patient will be observed currently. Her GERD is minimal. We will not adjust her band this visit. Bariatric Checklist Checklist: Plan: Checklist: EGD: 1. Hiatal hernia: 2. H. Pylori: HgbA1c: Vitamin D: Smoking: Never smoker Primary care physician referral: link Psychiatry clearance: Cardiology clearance: Sleep study: Diet journal: VTE risk score: VTE risk level: Rehab needs at discharge:
== END ==
LOC: BARWHC3 13:35
PROVIDERS: ATTEND Surgery
DX: E66.01 Morbid (severe) obesity due to excess calories (principal); E78.5 Hyperlipidemia, unspecified; I10 Essential (primary) hypertension; Z68.41 Body mass index [BMI] 40.0-44.9, adult; M06.9 Rheumatoid arthritis, unspecified
CPT/HCPCS: 99211